=== PATIENT | female | born 1960 | race African-American/Black ===

== ENCOUNTER 2022-07-04 13:28 | Emergency (ER) | payer BC ==
[2022-07-04] MEDS ORDERED: Ondansetron PF 4 MG/2 ML Vial ONE (13:59)
[2022-07-04 14:23] LABS: #Eosinphils 0.1 10x3/uL (0.0-0.5); #Monocytes 0.5 10x3/uL (0.0-1.1); #Neutrophils 4.7 10x3/uL (1.5-8.4); %Basophils 0.5 % (0.0-2.0); %Eosinophils 1.1 % (0.0-6.0); %Lymphocytes 29.3 % (18.0-47.0); %Monocytes 6.2 % (0.0-10.0); %Neutrophils 62.6 % (40.0-75.0); Hemoglobin 12.4 g/dL (12.0-15.5); Mean Corpuscular HGB CONC 33.2 g/dL (32.0-36.0); Mean Corpuscular Volume 90.3 fl (81.6-98.3); Platelet Count 369 10x3/uL (150-450); RBC Distribution Width 12.8 % (11.5-14.5); Red Blood Cell (RBC) Count 4.14 10x6/uL (3.90-5.03); White Blood Cell (WBC) Count 7.5 10x3/uL (3.5-10.5)
[2022-07-04 14:34] LABS: Anion Gap 14 mmol/L (10-20); BUN (Urea Nitrogen) 12 mg/dL (9.8-20.1); Calc. Creatinine Clearance 0 mL/min (70-130); Carbon Dioxide 21 mmol/L (23-31); Chloride 107 mmol/L (98-107); Potassium 3.3 mmol/L (3.5-5.1); Sodium 139 mmol/L (136-145)
[2022-07-04 14:34] LABS: Bilirubin Neg (Negative); Blood, Urine 10 (Negative); Clarity Clear (Clear); Glucose, Urine (Dipstick) Normal (Negative); Ketone, Urine Negative (Negative); Leukocyte Negative (Negative); Nitrite Negative (Negative); Protein, Urine (Dipstick) 15 mg/dl (Neg-Trace); Specific Gravity, Urine 1.015 (1.005-1.030); Urobilinogen Normal mg/dL (Less than 2)
[2022-07-04 14:35] LABS: ALT (SGPT) 13 U/L (8-55); AST (SGOT) 14 U/L (5-34); Alkaline Phosphatase 105 U/L (40-110); Bilirubin, Total 0.8 mg/dL (0.2-1.2); Calcium 9.4 mg/dL (7.8-10.44); Estimated GFR 89; Glucose 113 mg/dL (80-115)
[2022-07-04 14:48] LABS: RBC/HPF 0-3 HPF (0-3)
[2022-07-04 14:49] LABS: Bacteria/HPF None Seen HPF (None Seen); Mucous/LPF 1+ LPF (<2+); Squamous Epithelial 0-3 HPF (0-3); WBC/HPF 0-3 HPF (0-3)
== END 2022-07-04 15:20 | disposition home or self-care (01) ==
LOC: CSHERS 13:28
DX: K57.32 Diverticulitis of large intestine without perforation or abscess without bleeding (principal); E78.5 Hyperlipidemia, unspecified; I10 Essential (primary) hypertension
CPT/HCPCS: 74176; 80053; 81003; 81015; 83735; 85025; 96374; J2405

== ENCOUNTER 2022-08-31 21:03 | Observation (INO) | payer BC ==
[2022-08-31] MEDS ORDERED: Aspirin Chewable 81 MG TAB ONE (21:36)
[2022-08-31 22:12] LABS: #Basophils 0.1 10x3/uL (0.0-0.2); #Eosinphils 0.1 10x3/uL (0.0-0.5); #Monocytes 0.3 10x3/uL (0.0-1.1); #Neutrophils 3.8 10x3/uL (1.5-8.4); %Basophils 0.8 % (0.0-2.0); %Eosinophils 1.7 % (0.0-6.0); %Lymphocytes 43.9 % (18.0-47.0); %Neutrophils 49.5 % (40.0-75.0); Hemoglobin 11.9 g/dL (12.0-15.5); Mean Corpuscular HGB CONC 33.1 g/dL (32.0-36.0); Mean Corpuscular Hemoglobin 30.4 pg (27.0-33.0); Mean Corpuscular Volume 91.6 fl (81.6-98.3); Mean Platelet Volume 10.8 fl (7.4-10.4); Platelet Count 286 10x3/uL (150-450); RBC Distribution Width 12.7 % (11.5-14.5); Red Blood Cell (RBC) Count 3.92 10x6/uL (3.90-5.03); White Blood Cell (WBC) Count 7.6 10x3/uL (3.5-10.5)
[2022-08-31 22:27] LABS: ALT (SGPT) 16 U/L (8-55); AST (SGOT) 20 U/L (5-34); Albumin 4.3 g/dL (3.4-4.8); Alkaline Phosphatase 101 U/L (40-110); Anion Gap 13 mmol/L (10-20); BUN (Urea Nitrogen) 14 mg/dL (9.8-20.1); Bilirubin, Total 0.7 mg/dL (0.2-1.2); Calc. Creatinine Clearance 0 mL/min (70-130); Calcium 9.2 mg/dL (7.8-10.44); Carbon Dioxide 24 mmol/L (23-31); Chloride 106 mmol/L (98-107); Estimated GFR 90; Globulin 3.7 g/dL (2.4-3.5); Glucose 92 mg/dL (80-115); Lipase 22 U/L (8-78); Potassium 3.2 mmol/L (3.5-5.1); Sodium 140 mmol/L (136-145)
[2022-09-01] MEDS ORDERED: hydrALAZINE 20 MG/ML VIAL ONE (00:58)
[2022-09-01] MEDS ORDERED: Senokot S 8.6-50 MG TAB PO PRN (01:05)
[2022-09-01] MEDS ORDERED: Ondansetron ODT 4 MG TAB PO PRN (01:05)
[2022-09-01] MEDS ORDERED: Acetaminophen 325 MG TAB PO PRN (01:05)
[2022-09-01 01:50] LABS: Troponin I Less than 0.010 ng/mL (< 0.028)
[2022-09-01 02:23] VITALS: BMI 34.4
[2022-09-01] MEDS ORDERED: Potassium Chloride 20 MEQ TAB PO SCH (02:30)
[2022-09-01 05:23] LABS: Troponin I Less than 0.010 ng/mL (< 0.028)
[2022-09-01] MEDS ORDERED: Electrolyte Replacement Protocol 1 EACH FS SCH (07:45)
[2022-09-01 08:35] LABS: #Basophils 0.1 10x3/uL (0.0-0.2); #Eosinphils 0.1 10x3/uL (0.0-0.5); #Monocytes 0.3 10x3/uL (0.0-1.1); #Neutrophils 5.4 10x3/uL (1.5-8.4); %Basophils 0.8 % (0.0-2.0); %Eosinophils 0.9 % (0.0-6.0); %Lymphocytes 23.7 % (18.0-47.0); %Monocytes 4.2 % (0.0-10.0); %Neutrophils 70.3 % (40.0-75.0); Hemoglobin 11.8 g/dL (12.0-15.5); Mean Corpuscular HGB CONC 33.1 g/dL (32.0-36.0); Mean Corpuscular Hemoglobin 30.8 pg (27.0-33.0); Mean Platelet Volume 11.1 fl (7.4-10.4); Platelet Count 316 10x3/uL (150-450); RBC Distribution Width 12.8 % (11.5-14.5); Red Blood Cell (RBC) Count 3.83 10x6/uL (3.90-5.03); White Blood Cell (WBC) Count 7.6 10x3/uL (3.5-10.5)
[2022-09-01] MEDS: Famotidine 20 MG TAB PO SCH ×2 (08:48→21:23)
[2022-09-01] MEDS: Aspirin Chewable 81 MG TAB PO SCH (08:48)
[2022-09-01] MEDS ORDERED: Carvedilol 6.25 MG TAB PO SCH (09:00)
[2022-09-01 09:14] LABS: Anion Gap 15 mmol/L (10-20); BUN (Urea Nitrogen) 12 mg/dL (9.8-20.1); Calc. Creatinine Clearance 126 mL/min (70-130); Calcium 9.3 mg/dL (7.8-10.44); Carbon Dioxide 22 mmol/L (23-31); Chloride 108 mmol/L (98-107); Estimated GFR 93; Glucose 118 mg/dL (80-115); Potassium 3.8 mmol/L (3.5-5.1); Sodium 141 mmol/L (136-145)
[2022-09-01] MEDS ORDERED: Polyethylene Glycol 3350 17 GM Packet PO PRN (09:53)
[2022-09-01] MEDS ORDERED: Fluticasone Propionate Nasal Spray 16 gm Bottle NASAL PRN (09:53)
[2022-09-01 14:25] LABS: Magnesium 2.2 mg/dL (1.6-2.6)
[2022-09-01] MEDS ORDERED: Carvedilol 12.5 MG TAB PO SCH (18:45)
[2022-09-01] MEDS ORDERED: Atorvastatin Calcium 40 MG TAB PO SCH (21:00)
[2022-09-02 07:53] LABS: Magnesium 2.3 mg/dL (1.6-2.6); Phosphorus 3.5 mg/dL (2.3-4.7)
[2022-09-02] MEDS ORDERED: Carvedilol 12.5 MG TAB PO SCH (08:00)
[2022-09-02] MEDS: Famotidine 20 MG TAB PO SCH (09:05)
[2022-09-02] MEDS: Aspirin Chewable 81 MG TAB PO SCH (09:05)
[2022-09-02] MEDS ORDERED: NIFEdipine XL 60 MG TAB PO SCH (09:15)
[2022-09-02 14:07] VITALS: BP 121/63; TEMP 98.3
[2022-09-03] MEDS ORDERED: NIFEdipine XL 90 MG TAB PO SCH (09:00)
== END 2022-09-02 13:35 | disposition home or self-care (01) ==
LOC: CSHERS 21:03 → CSHTELE 09-01 02:04
PROVIDERS: ADMIT Student in an Organized Health Care Education/Training Program; ATTEND Internal Medicine
DX: R10.13 Epigastric pain (principal); I25.10 Atherosclerotic heart disease of native coronary artery without angina pectoris; I10 Essential (primary) hypertension; E78.5 Hyperlipidemia, unspecified; E87.6 Hypokalemia; Z88.0 Allergy status to penicillin; Z88.5 Allergy status to narcotic agent; Z91.041 Radiographic dye allergy status; Z79.82 Long term (current) use of aspirin; Z79.899 Other long term (current) drug therapy
CPT/HCPCS: 36415; 71045; 76705; 80048; 80053; 83690; 83735; 83880; 84100; 84484; 85025; 93005; 94760; 96374; G0378; J0360

== ENCOUNTER 2024-01-09 17:37 | Emergency (ER) | payer BC ==
[2024-01-09] MEDS ORDERED: Naproxen 500 MG TAB ONE (19:08)
[2024-01-09] MEDS ORDERED: Lidocaine 4% Patch ONE (19:09)
== END 2024-01-09 19:46 | disposition home or self-care (01) ==
LOC: CSHERS 17:37
DX: S16.1XXA Strain of muscle, fascia and tendon at neck level, initial encounter (principal); M54.12 Radiculopathy, cervical region; I10 Essential (primary) hypertension; X50.0XXA Overexertion from strenuous movement or load, initial encounter
CPT/HCPCS: 99283